=== PATIENT | female | born 1955 | race Caucasian/White ===

== ENCOUNTER 2017-04-12 15:22 | Observation (INO) | payer OTHER ==
[2017-04-12 16:35] LABS: Basophils # (A) 0.1 k/uL (0-0.2); Basophils % (A) 1 %; CH 29.9; Eosinophils # (A) 0.3 k/uL (0-0.7); Eosinophils % (A) 2 %; HCT 28.7 % (34.0-46.0); HDW 2.55; HGB 9.7 gm/dL (11.4-16.0); Luc # (Auto) 0.24; Luc % (Auto) 2; Lymphocytes # (A) 3.3 k/uL (1.0-4.8); Lymphocytes % (A) 27 %; MCH 29.8 pg (25.0-35.0); MCHC 33.6 g/dL (31.0-37.0); MCV 88.5 fL (80.0-100.0); Mean Platelet Volume 8.3; Monocytes # (A) 0.7 k/uL (0-1.0); Monocytes % (A) 6 %; Neutrophils # (A) 7.5 k/uL (1.3-7.7); Neutrophils % (A) 62 %; RBC 3.25 m/uL (3.80-5.40); RDW 13.6 % (11.5-15.5); WBC 12.2 k/uL (3.8-10.6); WBC (Perox) 12.18
[2017-04-12 16:44] LABS: ALT 45 U/L (9-52); AST 45 U/L (14-36); Alkaline Phosphatase 101 U/L (38-126); Anion Gap 8 mmol/L; Blood Urea Nitrogen 18 mg/dL (7-17); Calcium 8.6 mg/dL (8.4-10.2); Carbon Dioxide 25 mmol/L (22-30); Chloride 106 mmol/L (98-107); Glucose 74 mg/dL (74-99); Magnesium 2.1 mg/dL (1.6-2.3); Non-African American GFR(MDRD) >60 (>60 ml/min/1.73 sqM); Sodium 139 mmol/L (137-145); Total Bilirubin 0.2 mg/dL (0.2-1.3); Total Protein 6.3 g/dL (6.3-8.2)
[2017-04-12 16:47] LABS: Partial Thromboplastin Time 22.8 sec (22.0-30.0); Prothrombin Time 10.1 sec (9.0-12.0)
[2017-04-12 16:53] LABS: Creatine Kinase 102 U/L (30-135)
[2017-04-12 17:05] LABS: Creatine Kinase MB 1.7 ng/mL (0.0-2.4); Troponin I <0.012 ng/mL (0.000-0.034)
[2017-04-12] MEDS ORDERED: FAMOTIDINE 20 MG/2 ML VIAL IV STA (17:18)
[2017-04-12] MEDS ORDERED: ONDANSETRON 4 MG/2 ML VIAL IVP PRN (17:18)
--- NOTE | 2017-04-12 17:18 | ED ---
General Adult HPI - General Chief complaint: GI Bleed Stated complaint: GI Bleed Time Seen by Provider: 04/12/17 15:46 Source: patient, RN notes reviewed, old records reviewed Mode of arrival: ambulatory Limitations: no limitations - History of Present Illness Initial comments: This is a 61-year-old female ER for dark tarry stools. Patient has no prior history of bloody stool. No vomiting of blood. Not denies being an alcoholic her history of drinking. Not on blood thinners. Patient does not feel weak or lightheaded lightheaded or dizzy. Denies abdominal pain. No history of colonoscopy - Related Data Home Medications Medication Instructions Recorded Confirmed Naproxen Sodium [Aleve] 220 mg PO DAILY PRN 04/12/17 04/12/17 Allergies Allergy/AdvReac Type Severity Reaction Status Date / Time No Known Allergies Allergy Verified 04/12/17 15:58 Review of Systems ROS Statement: Those systems with pertinent positive or pertinent negative responses have been documented in the HPI. ROS Other: All systems not noted in ROS Statement are negative. Past Medical History Past Medical History: No Reported History History of Any Multi-Drug Resistant Organisms: None Reported Past Surgical History: No Surgical Hx Reported Past Psychological History: No Psychological Hx Reported Smoking Status: Current every day smoker Past Alcohol Use History: None Reported Past Drug Use History: None Reported General Exam Limitations: no limitations General appearance: alert, in no apparent distress Head exam: Present: atraumatic, normocephalic, normal inspection Eye exam: Present: normal appearance, PERRL, EOMI. Absent: scleral icterus, conjunctival injection, periorbital swelling ENT exam: Present: normal exam, mucous membranes moist Neck exam: Present: normal inspection. Absent: tenderness, meningismus, lymphadenopathy Respiratory exam: Present: normal lung sounds bilaterally. Absent: respiratory distress, wheezes, rales, rhonchi, stridor Cardiovascular Exam: Present: regular rate, normal rhythm, normal heart sounds. Absent: systolic murmur, diastolic murmur, rubs, gallop, clicks GI/Abdominal exam: Present: soft, normal bowel sounds. Absent: distended, tenderness, guarding, rebound, rigid Rectal exam: Present: heme (+) stool, black stool Extremities exam: Present: normal inspection, full ROM, normal capillary refill. Absent: tenderness, pedal edema, joint swelling, calf tenderness Back exam: Present: normal inspection Neurological exam: Present: alert, oriented X3, CN II-XII intact Psychiatric exam: Present: normal affect, normal mood Skin exam: Present: warm, dry, intact, normal color. Absent: rash Course Vital Signs 04/12/17 04/12/17 15:30 16:55 Temperature 97.7 F Pulse Rate 79 75 Respiratory 17 18 Rate Blood Pressure 117/70 132/68 O2 Sat by Pulse 99 98 Oximetry - Reevaluation(s) Reevaluation #1: 04/12/17 17:17 Patient informed regarding process, prognosis. Questions answered Medical Decision Making - Medical Decision Making 61 female with likely upper GI bleed, presumably also, melanotic stool, will admit for GI evaluation - Lab Data Result diagrams: 04/12/17 16:10 04/12/17 16:10 Lab Results 04/12/17 04/12/17 04/12/17 Range/Units 16:10 16:10 16:10 WBC 12.2 H (3.8-10.6) k/uL RBC 3.25 L (3.80-5.40) m/uL Hgb 9.7 L (11.4-16.0) gm/dL Hct 28.7 L (34.0-46.0) % MCV 88.5 (80.0-100.0) fL MCH 29.8 (25.0-35.0) pg MCHC 33.6 (31.0-37.0) g/dL RDW 13.6 (11.5-15.5) % Plt Count 253 (150-450) k/uL Neutrophils % 62 % Lymphocytes % 27 % Monocytes % 6 % Eosinophils % 2 % Basophils % 1 % Neutrophils # 7.5 (1.3-7.7) k/uL Lymphocytes # 3.3 (1.0-4.8) k/uL Monocytes # 0.7 (0-1.0) k/uL Eosinophils # 0.3 (0-0.7) k/uL Basophils # 0.1 (0-0.2) k/uL PT (9.0-12.0) sec INR (<1.2) APTT (22.0-30.0) sec Sodium 139 (137-145) mmol/L Potassium 4.0 (3.5-5.1) mmol/L Chloride 106 (98-107) mmol/L Carbon Dioxide 25 (22-30) mmol/L Anion Gap 8 mmol/L BUN 18 H (7-17) mg/dL Creatinine 0.66 (0.52-1.04) mg/dL Est GFR (MDRD) Af Amer >60 (>60 ml/min/1.73 sqM) Est GFR (MDRD) Non-Af >60 (>60 ml/min/1.73 sqM) Glucose 74 (74-99) mg/dL Calcium 8.6 (8.4-10.2) mg/dL Magnesium 2.1 (1.6-2.3) mg/dL Total Bilirubin 0.2 (0.2-1.3) mg/dL AST 45 H (14-36) U/L ALT 45 (9-52) U/L Alkaline Phosphatase 101 (38-126) U/L Total Creatine Kinase 102 (30-135) U/L CK-MB (CK-2) 1.7 (0.0-2.4) ng/mL CK-MB (CK-2) Rel Index 1.7 Troponin I <0.012 (0.000-0.034) ng/mL Total Protein 6.3 (6.3-8.2) g/dL Albumin 4.2 (3.5-5.0) g/dL Lipase 80 (23-300) U/L Stool Occult Blood (Negative) 04/12/17 04/12/17 Range/Units 16:10 16:50 WBC (3.8-10.6) k/uL RBC (3.80-5.40) m/uL Hgb (11.4-16.0) gm/dL Hct (34.0-46.0) % MCV (80.0-100.0) fL MCH (25.0-35.0) pg MCHC (31.0-37.0) g/dL RDW (11.5-15.5) % Plt Count (150-450) k/uL Neutrophils % % Lymphocytes % % Monocytes % % Eosinophils % % Basophils % % Neutrophils # (1.3-7.7) k/uL Lymphocytes # (1.0-4.8) k/uL Monocytes # (0-1.0) k/uL Eosinophils # (0-0.7) k/uL Basophils # (0-0.2) k/uL PT 10.1 (9.0-12.0) sec INR 1.0 (<1.2) APTT 22.8 (22.0-30.0) sec Sodium (137-145) mmol/L Potassium (3.5-5.1) mmol/L Chloride (98-107) mmol/L Carbon Dioxide (22-30) mmol/L Anion Gap mmol/L BUN (7-17) mg/dL Creatinine (0.52-1.04) mg/dL Est GFR (MDRD) Af Amer (>60 ml/min/1.73 sqM) Est GFR (MDRD) Non-Af (>60 ml/min/1.73 sqM) Glucose (74-99) mg/dL Calcium (8.4-10.2) mg/dL Magnesium (1.6-2.3) mg/dL Total Bilirubin (0.2-1.3) mg/dL AST (14-36) U/L ALT (9-52) U/L Alkaline Phosphatase (38-126) U/L Total Creatine Kinase (30-135) U/L CK-MB (CK-2) (0.0-2.4) ng/mL CK-MB (CK-2) Rel Index Troponin I (0.000-0.034) ng/mL Total Protein (6.3-8.2) g/dL Albumin (3.5-5.0) g/dL Lipase (23-300) U/L Stool Occult Blood Negative (Negative) Disposition Clinical Impression: Gastrointestinal hemorrhage, Upper gastrointestinal hemorrhage Disposition: ADMITTED IP TO THIS [facility] Condition: Fair Referrals: None,Stated [Primary Care Provider] - 1-2 days
[2017-04-12] MEDS ORDERED: SODIUM CHLORIDE 0.9% 1,000 ML IV ONE (17:26)
[2017-04-12 18:35] VITALS: RESP 16
[2017-04-12 19:37] VITALS: BMI 28.3
[2017-04-12] MEDS: FAMOTIDINE 20 MG/2 ML VIAL IV SCH (20:31)
[2017-04-13] MEDS: FAMOTIDINE 20 MG/2 ML VIAL IV SCH (07:39)
--- NOTE | 2017-04-13 10:28 | P.CONS ---
History of Present Illness - Reason for Consult Consult date: 04/13/17 anemia GI bleed Requesting physician: Jorgito Schmidt - History of Present Illness 61-year-old female presents with reported black colored bowel movement 2 on Wednesday. Patient was not feeling well on Wednesday with flulike symptoms weakness chills sweats dizziness. She had 2 small black colored bowel movements on Wednesday without recurrence. Epes better on Wednesday but told her symptoms to family members and the advised her to present to the hospital for further evaluation. She takes Aleve as needed for arthritic pain but denies excessive usage of Aleve prior to admission. No history of GI bleeding. No history of anemia. No history of EGD colonoscopy. Admission hemoglobin 9.7. MCV 88. Platelet 253. INR 1.0. BUN 18. Creatinine 0.6. No previous CBC available for comparison. Occult stool negative. No history of alcohol abuse or recent consumption. Denies gross hematochezia or hematemesis. No weight loss or changes in appetite. Review of Systems Constitutional: Denies fever, chills, sweats, weight gain, or loss. HEENT: Negative for migraines, blurred vision or loss, earaches, drainage, tinnitus, oral mucosal lesions, dysphagia, or odynophagia. CARDIAC: Negative for chest pain, arrhythmias, or palpitation. RESPIRATORY: Nicotine dependency. Negative for shortness of breath, hemoptysis , cough, or sputum production. GI: See HPI for pertinent findings. : Negative for hematuria, urgency, frequency, polyuria, or dysuria. GYNc: Denies possibility of . Negative vaginal discharge. MUSCULOSKELETAL: Negative for muscle aches, swelling, arthritis, and arthralgias. NEUROLOGIC: Negative for stroke or TIA. ENDOCRINE: Negative for thyroid problems. SKIN: Negative for rash or itching. PSYCHIATRIC: Negative history for depression and anxiety All systems: negative (See HPI) Past Medical History Past Medical History: No Reported History History of Any Multi-Drug Resistant Organisms: None Reported Past Surgical History: No Surgical Hx Reported Past Anesthesia/Blood Transfusion Reactions: No Reported Reaction Past Psychological History: No Psychological Hx Reported Smoking Status: Current every day smoker Past Alcohol Use History: Occasional Past Drug Use History: None Reported - Past Family History Mother Family Medical History: Cancer Additional Family Medical History / Comment(s): pancreatic Father Family Medical History: Cancer Additional Family Medical History / Comment(s): bladder and lung cancer, at 86 years old Medications and Allergies Home Medications Medication Instructions Recorded Confirmed Type Naproxen Sodium [Aleve] 220 mg PO DAILY PRN 04/12/17 04/12/17 History Allergies Allergy/AdvReac Type Severity Reaction Status Date / Time No Known Allergies Allergy Verified 04/12/17 15:58 Physical Exam Vitals: Vital Signs Temp Pulse Pulse Resp BP BP Pulse Ox 04/13/17 08:00 75 16 04/13/17 07:00 97.4 F L 75 16 101/56 97 04/12/17 21:45 97.4 F L 73 16 110/52 98 04/12/17 18:34 97.9 F 75 16 112/62 100 04/12/17 17:44 97.4 F L 74 20 124/72 99 04/12/17 16:55 75 18 132/68 98 04/12/17 15:30 97.7 F 79 17 117/70 99 Intake and Output 04/12/17 04/13/17 04/13/17 22:59 06:59 14:59 Intake Total 800 Balance 800 Intake: IV 800 Sodium Chloride 0.9% 1, 800 000 ml @ 100 mls/hr IV . Q10H ONE Rx#:[id number] Other: Voiding Method Toilet Toilet # Voids 1 1 Weight 74.843 kg General appearance: The patient is alert, oriented, in no acute distress. HET: Head is normocephalic and atraumatic. Pupils are equal and reactive. Oropharynx is clear without lesions. Neck: Supple without lymphadenopathy. Trachea midline. Heart: S1 S2. Regular rate and rhythm. Lungs: No crackles or wheezes are heard. Abdomen: Soft, nontender, nondistended with bowel sounds. No peritoneal signs. No palpable organomegaly or masses. Extremities: Normal skin color and turgor. No cyanosis, rash, ulceration, clubbing, or edema. Radial and pedal pulses are 2/4 bilaterally. Neurological: No focal deficits. Strength and sensation are grossly intact. Results CBC & Chem 7: 04/12/17 16:10 04/12/17 16:10 Labs: Abnormal Lab Results - Last 24 Hours (Table) 04/12/17 04/12/17 Range/Units 16:10 16:10 WBC 12.2 H (3.8-10.6) k/uL RBC 3.25 L (3.80-5.40) m/uL Hgb 9.7 L (11.4-16.0) gm/dL Hct 28.7 L (34.0-46.0) % BUN 18 H (7-17) mg/dL AST 45 H (14-36) U/L Assessment and Plan (1) Melena Narrative/Plan: 61-year-old female presents with painless black colored bowel movements 2 on Wednesday with anemia and occasional nonsteroidal usage. Possible peptic ulcer disease with no history of baseline colonoscopy screening. Status: Acute (2) Acute blood loss anemia Status: Acute Plan: 1. EGD colonoscopy recommended for evaluation of anemia and melena. 2. GI prophylaxis Protonix 40 mg daily. CBC monitoring. The field party manager has discussed the risks, benefits and alternative therapies for the above-mentioned procedure and for both sedation/analgesia as well as necessary blood product administration, if indicated, as they pertain to this patient. The patient has indicated understanding and acceptance of the risks and procedures discussed. Thank you for this kind referral and the opportunity to participate in the care of your patient. This consultation was discussed with Dr. Russell. The impression and plan of care have been directed as dictated.
[2017-04-13 10:32] LABS: Basophils # (A) 0.1 k/uL (0-0.2); Basophils % (A) 1 %; CH 29.8; CHCM 32.9; Eosinophils # (A) 0.3 k/uL (0-0.7); Eosinophils % (A) 3 %; HCT 26.1 % (34.0-46.0); HDW 2.56; HGB 8.6 gm/dL (11.4-16.0); Luc # (Auto) 0.19; Luc % (Auto) 2; Lymphocytes # (A) 2.4 k/uL (1.0-4.8); Lymphocytes % (A) 28 %; MCH 30.1 pg (25.0-35.0); MCV 91.1 fL (80.0-100.0); Mean Platelet Volume 8.1; Monocytes # (A) 0.6 k/uL (0-1.0); Monocytes % (A) 7 %; Neutrophils % (A) 59 %; RBC 2.86 m/uL (3.80-5.40); WBC 8.6 k/uL (3.8-10.6); WBC (Perox) 8.01
--- NOTE | 2017-04-13 10:54 | P.HPIM ---
History of Present Illness Gen. female came in with complaints of dark stools couple episodes of syncopal episodes day before. Patient does take Aleve at home never had any upper or lower GI endoscopy. Patient is admitted for monitoring patient was available gastroneurology. Patient is on Protonix. And patient is going for upper and lower GI endoscopy tomorrow. Patient is clinically stable. Patient denied any sinus of breath denied any fatigue, nausea, vomiting, denied any abdominal pain , denied any blood in the stools Review of Systems REVIEW OF SYSTEMS: CONSTITUTIONAL: No fever, no malaise, no fatigue. HEENT: No recent visual problems or hearing problems. Denied any sore throat. CARDIOVASCULAR: No chest pain, orthopnea, PND, no palpitations, no syncope. PULMONARY: No shortness of breath, no cough, no hemoptysis. GASTROINTESTINAL: No diarrhea, no nausea, no vomiting, no abdominal pain. Normoactive bowel sounds. NEUROLOGICAL: No headaches, no weakness, no numbness. HEMATOLOGICAL: Denies any bleeding or petechiae. GENITOURINARY: Denies any burning micturition, frequency, or urgency. MUSCULOSKELETAL/RHEUMATOLOGICAL: Denies any joint pain, swelling, or any muscle pain. ENDOCRINE: Denies any polyuria or polydipsia. The rest of the 14-point review of systems is negative. Past Medical History Past Medical History: No Reported History History of Any Multi-Drug Resistant Organisms: None Reported Past Surgical History: No Surgical Hx Reported Past Anesthesia/Blood Transfusion Reactions: No Reported Reaction Past Psychological History: No Psychological Hx Reported Smoking Status: Current every day smoker Past Alcohol Use History: Occasional Past Drug Use History: None Reported - Past Family History Mother Family Medical History: Cancer Additional Family Medical History / Comment(s): pancreatic Father Family Medical History: Cancer Additional Family Medical History / Comment(s): bladder and lung cancer, at 86 years old Medications and Allergies Home Medications Medication Instructions Recorded Confirmed Type Naproxen Sodium [Aleve] 220 mg PO DAILY PRN 04/12/17 04/12/17 History Allergies Allergy/AdvReac Type Severity Reaction Status Date / Time No Known Allergies Allergy Verified 04/12/17 15:58 Physical Exam Vitals: Vital Signs Temp Pulse Pulse Resp BP BP Pulse Ox 04/13/17 08:00 75 16 04/13/17 07:00 97.4 F L 75 16 101/56 97 04/12/17 21:45 97.4 F L 73 16 110/52 98 04/12/17 18:34 97.9 F 75 16 112/62 100 04/12/17 17:44 97.4 F L 74 20 124/72 99 04/12/17 16:55 75 18 132/68 98 04/12/17 15:30 97.7 F 79 17 117/70 99 Intake and Output 04/12/17 04/13/17 04/13/17 22:59 06:59 14:59 Intake Total 800 Balance 800 Intake: IV 800 Sodium Chloride 0.9% 1, 800 000 ml @ 100 mls/hr IV . Q10H ONE Rx#:[id number] Other: Voiding Method Toilet Toilet # Voids 1 1 Weight 74.843 kg PHYSICAL EXAMINATION: GENERAL: The patient is alert and oriented x3, not in any acute distress. Well developed, well nourished. HEENT: Pupils are round and equally reacting to light. EOMI. No scleral icterus. No conjunctival pallor. Normocephalic, atraumatic. No pharyngeal erythema. No thyromegaly. CARDIOVASCULAR: S1 and S2 present. No murmurs, rubs, or gallops. PULMONARY: Chest is clear to auscultation, no wheezing or crackles. ABDOMEN: Soft, nontender, nondistended, normoactive bowel sounds. No palpable organomegaly. MUSCULOSKELETAL: No joint swelling or deformity. EXTREMITIES: No cyanosis, clubbing, or pedal edema. NEUROLOGICAL: Gross neurological examination did not reveal any focal deficits. SKIN: No rashes. Results CBC & Chem 7: 04/13/17 10:00 04/12/17 16:10 Labs: Abnormal Lab Results - Last 24 Hours (Table) 04/12/17 04/12/17 04/13/17 Range/Units 16:10 16:10 10:00 WBC 12.2 H (3.8-10.6) k/uL RBC 3.25 L 2.86 L (3.80-5.40) m/uL Hgb 9.7 L 8.6 L (11.4-16.0) gm/dL Hct 28.7 L 26.1 L (34.0-46.0) % BUN 18 H (7-17) mg/dL AST 45 H (14-36) U/L Thrombosis Risk Factor Assmnt - Choose All That Apply Each Factor Represents 1 point: Obesity (BMI >25) Other Risk Factors: Yes Each Risk Factor Represents 2 Points: Age 61-74 years Thrombosis Risk Factor Assessment Total Risk Factor Score: 3 Thrombosis Risk Factor Assessment Level: Moderate Risk Assessment and Plan Plan: #1 acute blood loss anemia from upper GI bleed most probably: Patient is going for upper and lower GI endoscopy. Patient is on Protonix. #2 melena secondary to assessment #1
[2017-04-13] MEDS ORDERED: PEG 3350-NA SULF,BICARB,CL/KCL 4,000 ML BOTTLE PO ONE (16:00)
[2017-04-14] MEDS ORDERED: LACTATED RINGERS 1,000 ML IV SCH (05:36)
[2017-04-14] MEDS ORDERED: PANTOPRAZOLE 40 MG TABLET PO SCH (07:30)
[2017-04-14 07:47] LABS: CH 29.7; HCT 25.6 % (34.0-46.0); HDW 2.67; HGB 8.3 gm/dL (11.4-16.0); MCH 29.4 pg (25.0-35.0); MCHC 32.4 g/dL (31.0-37.0); MCV 90.7 fL (80.0-100.0); Mean Platelet Volume 8.1; RBC 2.83 m/uL (3.80-5.40); RDW 14.4 % (11.5-15.5); WBC 10.9 k/uL (3.8-10.6)
[2017-04-14 12:01] LABS: % Iron Saturation 9.8 % (20-50)
[2017-04-14] MEDS ORDERED: GLYCOPYRROLATE 0.2 MG/ML 2 ML VIAL ONE (13:48)
[2017-04-14] MEDS ORDERED: LIDOCAINE 1% INJ 10MG/ML (20 ML MDV) ONE (13:48)
[2017-04-14] MEDS ORDERED: PROPOFOL 10 MG/ML 20 ML VIAL IV ONE (13:48)
[2017-04-14] MEDS ORDERED: IV FLUID CONTINUATION 1,000 ML IV ONE (13:50)
--- NOTE | 2017-04-14 14:11 | P.PCN ---
Date of Procedure: 04/14/17 Preoperative Diagnosis: Postoperative Diagnosis: Procedure(s) Performed: Brief history: Patient is a pleasant 61-year-old white female, admitted hospital with acute GI bleed. She had 3 episodes of black tarry stools and dropping hemoglobin to 8.3 g/dL. She uses Aleve on and off for the last few months. Denies any prior history of peptic ulcer disease. In view of the acute GI bleed she is scheduled for an upper endoscopy as well as colonoscopy as a part of evaluation of Procedure performed: Esophagogastroduodenoscopy with biopsy Colonoscopy Preoperative diagnosis: Acute GI bleed Anesthesia: MAC Procedure: After informed consent was obtained from the patient was brought into the endoscopy unit and IV sedation was administered by anesthesia under continuous monitoring. Initially upper endoscopy was done. The Olympus GF 160 video endoscope was inserted inserted into the mouth and esophagus intubated without any difficulty and was gradually advanced into the stomach and duodenum and carefully examined. The bulb and second part of the duodenum appeared normal. The scope was then withdrawn into the stomach adequately insufflated with air and upon careful examination there was a superficial pyloric channel ulcer noted with no active bleeding. He scattered erosions in the the antrum and body and biopsies were done from this area. The, cardia and fundus appeared normal. The scope was then withdrawn into the esophagus. The GE junction was located at 40 cm to the incisors. It appeared regular with no erythema erosions or ulcerations. Rest of the esophagus appeared normal. Patient tolerated the procedure well. At this time the patient continued to remain sedation. Initial digital rectal examination was normal. Olympus CF 160 video colonoscope was then inserted into the rectum and gradually advanced to the cecum without any difficulty. Careful examination was performed as the scope was gradually being withdrawn. The prep was excellent. The cecum, ascending colon, transverse colon, descending colon, sigmoid colon and rectum appeared normal. Retroflexion was performed in the rectum and no lesions were noted. Patient tolerated the procedure well. Impression: 1. Upper endoscopy revealed superficial ulceration in the pyloric channel with no active bleeding and antral erosive gastritis 2. Colonoscopy was essentially within normal limits with no evidence of colitis or colorectal neoplasia. Recommendations: Findings of this examination were discussed with the patient as well as her family. She was advised to follow with the biopsy results. She was also advised to avoid NSAIDs and continue with Protonix 40 mg daily. Diet will be advanced as tolerated. Implants: Indications for Procedure: Operative Findings: Description of Procedure:
[2017-04-14 15:58] VITALS: BP 105/64; PULSE 78; TEMP 98.7
--- NOTE | 2017-04-14 16:12 | P.PN ---
Subjective Date of service 04/13/2017. Progress note being dictated for Dr. Schmidt. Interval history: This a 61-year-old female admitted with complaints of dark stools couple episodes of syncopal episodes day before. Patient does take Aleve at home never had any upper or lower GI endoscopy. Patient is admitted for monitoring patient was available gastroneurology. Patient is on Protonix. And patient is going for upper and lower GI endoscopy tomorrow. Patient is clinically stable. Patient denied any sinus of breath denied any fatigue, nausea, vomiting, denied any abdominal pain, denied any blood in the stools. 04/13/2017 Reports black bowel movement earlier this morning, no abdominal pain. Hemoglobin 8.6. Evaluated by GI and scheduled for both EGD and colonoscopy tomorrow. Denies chest pain, palpitations or increased shortness of breath. Denies any focal deficits, no lightheadedness or dizziness. Objective - Vital Signs Vital signs: Vital Signs Temp 97.4 F L 04/13/17 07:00 Pulse 75 04/13/17 08:00 Resp 16 04/13/17 08:00 BP 101/56 04/13/17 07:00 Pulse Ox 97 04/13/17 07:00 Intake & Output 04/12/17 04/13/17 04/13/17 18:59 06:59 18:59 Intake Total 800 Balance 800 Weight 74.843 kg Intake: IV 800 Sodium Chloride 0.9% 1, 800 000 ml @ 100 mls/hr IV . Q10H ONE Rx#:[id number] Other: Voiding Method Toilet Toilet # Voids 1 1 - Exam GENERAL: Sitting up in bed, alert and oriented x3, no acute distress. Well developed, well nourished. HEENT: Pupils are round and equally reacting to light. EOMI. No scleral icterus. No conjunctival pallor. Normocephalic, atraumatic. No pharyngeal erythema. No thyromegaly. CARDIOVASCULAR: S1 and S2 present. No murmurs, rubs, or gallops. PULMONARY: Chest is clear to auscultation, no wheezing or crackles. ABDOMEN: Soft, nontender, nondistended, normoactive bowel sounds. No palpable organomegaly. No guarding, no rigidity MUSCULOSKELETAL: No joint swelling or deformity. EXTREMITIES: No cyanosis, clubbing, or pedal edema. NEUROLOGICAL: Gross neurological examination did not reveal any focal deficits. Strength and sensation grossly intact SKIN: No rashes. - Labs CBC & Chem 7: 04/14/17 07:06 04/12/17 16:10 Labs: Abnormal Lab Results - Last 24 Hours (Table) 04/12/17 04/12/17 04/13/17 Range/Units 16:10 16:10 10:00 WBC 12.2 H (3.8-10.6) k/uL RBC 3.25 L 2.86 L (3.80-5.40) m/uL Hgb 9.7 L 8.6 L (11.4-16.0) gm/dL Hct 28.7 L 26.1 L (34.0-46.0) % BUN 18 H (7-17) mg/dL AST 45 H (14-36) U/L Assessment and Plan Plan: #1 acute blood loss anemia suspect upper GI bleed #2 melena secondary to assessment #1 Plan: Continue on current medication regime ,monitoring and symptomatic treatment. Continue on PPI. Close monitoring of CBC with repeat labs ordered for a.m. As mentioned above scheduled for EGD and colonoscopy tomorrow. Potential discharge tomorrow after endoscopy pending findings. Further recommendations to follow. The impression and plan of care has been dictated as directed. : I performed a H&P examination of this patient and discussed the same with the dictator. I agree with the dictator's note. Any additional findings/opinions/ etc. will be noted.
--- NOTE | 2017-04-14 16:24 | P.DS ---
Providers Date of admission: 04/12/17 17:27 Expected date of discharge: 04/14/17 Attending physician: Concepcion Schmidt Consults: 04/12/17 17:26 Consult Physician Routine Consulting Provider: Dennis Herrera Consult Reason/Comments: gib Do you want consulting provider notified?: Yes Primary care physician: Stated None Dr. Josephine Maxwell Hospital Course: Final Diagnoses: #1 acute blood loss anemia, S/P EGD and colonoscopy reporting superficial pyloric ulceration with no active bleeding and antral erosive gastritis, colonoscopy within normal limits without evidence of colitis or colorectal neoplasia. Biopsies obtained. #2 melena secondary to assessment #1 Hospital course :This is a pleasant 61-year-old female admitted with complaints of dark stools couple episodes of syncopal episodes day before. Patient does take Aleve at home. Has not had prior upper or lower GI endoscopy. Evaluated by GI, underwent EGD and colonoscopy revealing superficial pyloric ulceration with no active bleeding and antral erosive gastritis, colonoscopy within normal limits without evidence of colitis or colorectal neoplasia. Biopsies obtained. Tolerated procedure well. Patient has been cleared by GI for discharge. Patient is being discharged home in a stable condition with guarded prognosis. The impression and plan of care has been dictated as directed. Dr.: I performed a H&P examination of this patient and discussed the same with the dictator. I agree with the dictator's note. Any additional findings/opinions/ etc. will be noted. Patient Condition at Discharge: Stable Plan - Discharge Summary New Discharge Prescriptions: New Omeprazole [PriLOSEC] 40 mg PO DAILY #30 capsule. Discharge Medication List Omeprazole [PriLOSEC] 40 mg PO DAILY #30 capsule. 04/14/17 [Rx] Follow up Appointment(s)/Referral(s): Josephine Maxwell MD [STAFF PHYSICIAN] - 04/16/17 9:30 am (please schedule apt. prior to dc, as she will be a new patient. please call linus at [phone] to start new pt processes with dr maxwell thank you and give insurance information ) Josefina Russell MD [STAFF PHYSICIAN] - 3 Weeks Ambulatory/Diagnostic Orders: Complete Blood Count w/diff [LAB.AMB] Time Frame: 3 Days, Location: Determined By Patient Patient Instructions/Handouts: Omeprazole (By mouth) Activity/Diet/Wound Care/Special Instructions: Diet: Soft bland, no coffee Activity: Limited until follow up Avoid NSAIDs
== END 2017-04-14 16:50 | disposition home or self-care (01) ==
LOC: EC 15:22 → 5MS5E 17:27 → INTOOBSV 17:27
PROVIDERS: ADMIT Hospitalist; ATTEND Hospitalist
DX: D62 Acute posthemorrhagic anemia (principal); K92.1 Melena; K29.50 Unspecified chronic gastritis without bleeding; F17.200 Nicotine dependence, unspecified, uncomplicated; Z80.1 Family history of malignant neoplasm of trachea, bronchus and lung
CPT/HCPCS: 96376 ×2; 96361 ×2; 96374; 99285; 36415; 86900; 86901; 88305; 80053; 82728; 82550; 82553; 83540; 83550; 83690; 83735; 84484; 85025 ×2; 85027; 85610; 85730; 86850; 82272; 88342; 43239; G0378 ×3; J2001; J2704; G0121

== ENCOUNTER → 2018-11-05 | Outpatient (CLI) | payer OTHER ==
--- NOTE | 2018-11-05 14:54 | XR ---
EXAMINATION TYPE: XR Hip Complete RT DATE OF EXAM: 11/05/2018 CLINICAL HISTORY: Right hip pain for 6 to 7 months with no known injury. TECHNIQUE: AP and frogleg views of the right hip are obtained. COMPARISON: None. FINDINGS: There is no acute fracture/dislocation evident in the right hip. The joint space in the r ight hip is severely narrowed with uphj-md-fwoc articulation of the cephalad femoral head and acetabu lum. Underlying subchondral cystic change of small marginal osteophytes are seen with acetabular roof sclerosis. Femoral head maintains a normal rounded contour. No suspicious osseous lesion is seen. IMPRESSION: There is no acute fracture or dislocation in the right hip. Severe right femoral acetabu lar arthropathy with [id number]-pl-[id number] articulation of the weightbearing surface of the femoral head with the acetabular roof.
== END | disposition home or self-care (01) ==
LOC: RADXRMAIN 12:17
PROVIDERS: ATTEND Family Medicine
DX: M16.11 Unilateral primary osteoarthritis, right hip (principal)
CPT/HCPCS: 73502

== ENCOUNTER → 2018-11-25 | Outpatient (CLI) | payer OTHER ==
--- NOTE | 2018-11-28 13:18 | MM ---
Reason for exam: screening (asymptomatic). History: Patient is postmenopausal. Physical Findings: A clinical breast exam by your physician is recommended on an annual basis and results should be correlated with mammographic findings. MG Screening Mammo w CAD Bilateral CC and MLO view(s) were taken. No prior studies available for comparison. There are scattered fibroglandular densities. Finding: There is a 8 mm high density mass in the 9 o'clock position of the left breast consistent with possible mass, cyst. Asymmetric breast tissue. ASSESSMENT: Incomplete: need additional imaging evaluation, BI-RAD 0 RECOMMENDATION: Ultrasound of the left breast. [facility] will attempt to contact patient to return for ultrasound.
== END ==
LOC: RADMAMWWP 16:49
PROVIDERS: ATTEND Family Medicine
DX: Z12.31 Encounter for screening mammogram for malignant neoplasm of breast (principal)
CPT/HCPCS: 77067

== ENCOUNTER → 2018-12-14 | Outpatient (CLI) | payer OTHER ==
--- NOTE | 2018-12-14 10:58 | USB ---
Reason for exam: additional evaluation requested from abnormal screening. History: Patient is postmenopausal. Physical Findings: Nurse did not find any significant physical abnormalities on exam. US Breast Workup LT Left complete breast ultrasound includes all four quadrants, the retroareolar region and axilla. Finding demonstrates no cystic or solid lesion seen. These results were verbally communicated with the patient and result sheet given to the patient on 12/14/18. ASSESSMENT: Negative, BI-RAD 1 RECOMMENDATION: Return to routine screening mammogram schedule for both breasts.
== END | disposition home or self-care (01) ==
LOC: RADUSWWP 09:00
PROVIDERS: ATTEND Family Medicine
DX: R92.8 Other abnormal and inconclusive findings on diagnostic imaging of breast (principal)

== ENCOUNTER → 2018-12-14 | Outpatient (CLI) | payer OTHER ==
[2018-12-14 17:31] LABS: HCT 44.6 % (34.0-46.0); HGB 14.4 gm/dL (11.4-16.0); MCH 28.6 pg (25.0-35.0); MCHC 32.3 g/dL (31.0-37.0); MCV 88.7 fL (80.0-100.0); Mean Platelet Volume 7.5; Platelet Count 323 k/uL (150-450); RBC 5.04 m/uL (3.80-5.40); RDW 13.3 % (11.5-15.5); WBC 11.8 k/uL (3.8-10.6)
[2018-12-14 17:39] LABS: INR 0.9 (<1.2); Partial Thromboplastin Time 27.4 sec (22.0-30.0); Prothrombin Time 9.9 sec (9.0-12.0)
[2018-12-14 18:03] LABS: ALT 30 U/L (9-52); AST 25 U/L (14-36); Albumin 4.8 g/dL (3.5-5.0); Alkaline Phosphatase 147 U/L (38-126); Anion Gap 9 mmol/L; Blood Urea Nitrogen 19 mg/dL (7-17); Calcium 9.9 mg/dL (8.4-10.2); Carbon Dioxide 25 mmol/L (22-30); Chloride 105 mmol/L (98-107); Glucose 87 mg/dL (74-99); Potassium 4.1 mmol/L (3.5-5.1); Sodium 139 mmol/L (137-145); Total Bilirubin 0.5 mg/dL (0.2-1.3); Total Protein 7.7 g/dL (6.3-8.2)
== END | disposition home or self-care (01) ==
LOC: LABPAT 17:13
PROVIDERS: ATTEND Orthopaedic Surgery
DX: Z01.812 Encounter for preprocedural laboratory examination (principal)
CPT/HCPCS: 36415; 80053; 85027; 85610; 85730; 87070

== ENCOUNTER 2018-12-27 05:45 | Inpatient (IN) | payer OTHER ==
[~2018-12-27 05:45] MED LIST: ACETAMINOPHEN TAB 500 MG TAB PO ONE; DEXAMETHASONE SOD PHOSPHATE 10 MG/ML 1 ML VIAL IV ONE; HYDROmorphone 0.5 MG/0.5 ML SYRINGE IVP PRN; LIDOCAINE 1% 20 ML VIAL (10MG/ML) FOR IV START INTRADERMA PRN; MELOXICAM 7.5 MG TAB PO ONE; MIDAZOLAM 2 MG/2 ML VIAL IV PRN; ONDANSETRON 4 MG/2 ML VIAL IVP ONE; SCOPOLAMINE 1.5MG/72HR PATCH TRANSDERM ONE; TRANEXAMIC ACID 1,000 MG in SODIUM CHLORIDE 0.9% 100 ML IVPB ONE; ceFAZolin IN SWFI 2 GM/20 ML SYRINGE IVP ONE
[2018-12-27] MEDS: LACTATED RINGERS 1,000 ML IV SCH (06:22)
[2018-12-27] MEDS ORDERED: ROPIVACAINE 246.25 MG, EPINEPHrine 0.5 MG, KETOROLAC 30 MG, cloNIDine HCL/PF 80 MCG, WA... MISCELLANE ONE ×5 (07:00)
[2018-12-27] MEDS ORDERED: ceFAZolin 3,000 MG in SODIUM CHLORIDE 0.9% IRRIGATIO 3,000 ML IRRIGATION ONE (07:00)
[2018-12-27] MEDS ORDERED: DIAZEPAM 5 MG TAB PO PRN (07:08)
[2018-12-27] MEDS ORDERED: NALOXONE 0.4 MG/ML 1 ML VIAL IV PRN (07:08)
[2018-12-27] MEDS ORDERED: HYDROcodone/APAP 5-325MG 1 EACH TAB PO PRN (07:08)
[2018-12-27] MEDS ORDERED: HYDROmorphone 0.5 MG/0.5 ML SYRINGE IVP PRN ×2 (07:08)
[2018-12-27] MEDS ORDERED: HYDROmorphone 1 MG/ML 1 ML SYRINGE IVP PRN (07:08)
[2018-12-27] MEDS ORDERED: ONDANSETRON 4 MG/2 ML VIAL IVP PRN (07:08)
[2018-12-27] MEDS ORDERED: MAGNESIUM HYDROXIDE 2,400 MG/10 ML CUP PO PRN (07:08)
[2018-12-27] MEDS ORDERED: LACTATED RINGERS 1,000 ML IV ONE (07:51)
--- NOTE | 2018-12-27 08:42 | P.OP ---
Date of Procedure: 12/27/18 Preoperative Diagnosis: Severe osteoarthritis right hip Postoperative Diagnosis: Severe osteoarthritis right hip Procedure(s) Performed: Right total hip arthroplasty with a direct anterior approach Implants: Noyola and nephew Polarstem size 3 standard Noyola [employer] Nephew R3, 3 hole acetabular shell, 52 mm Noyola [employer] Nephew reflection 6.5 mm cancellus screw, 20 mm 2 Noyola [employer] Nephew R3, XLPE 20 acetabular liner Noyola [employer] Nephew Oxinium femoral head 36 m, +4 All components were press-fit. The articulation is Oxinium on polyethylene. Anesthesia: spinal Surgeon: Keith Pace Buildings Painter #1: Esperanza Oliver Estimated Blood Loss (ml): 110 (64 mL returned with Cell Saver) Pathology: other Condition: stable Disposition: PACU Indications for Procedure: After failure of conservative treatment we discussed the surgical and nons urgical treatment options at length. Patient wishes to proceed with a total hip arthroplasty with a direct anterior approach. Complications specific to this procedure were discussed at length, including but not limited to infection, leg length discrepancy, dislocation, and nerve injury. Patient is aware of all these complications and informed consent was obtained Operative Findings: The operative findings are consistent with severe osteoarthritis of the right hip Description of Procedure: Patient was seen and evaluated in the preoperative area, consent was reviewed, and the surgical site was marked with a skin marker. Patient was then brought to the operating room and given prophylactic antibiotics intravenously. 1 g of Tranexamic acid was also given. A spinal anesthetic was administered by the anesthesia department. The patient was then placed on the [place] table with the bony prominences well-padded. The hip area was then prepped and draped in usual sterile fashion. A universal timeout was then performed, which confirmed the patient's name, surgical site, ALLERGIES, and procedure being performed. Next the incision site was located at 1 cm distal and 1 cm lateral to the anterior superior iliac spine. The skin and subcutaneous tissues were sharply incised. Incision was carefully dissected down to the fascia overlying the tensor fascia dipak muscle. This fascia was then incised in line with the incision. Next, using blunt finger dissection, the tensor fascia dipak muscle was dissected off its investing fascia. The muscle was then carefully retracted laterally with a cobra retractor over the lateral neck of the femur. Next, the circumflex vessels were identified and cauterized using the AquaMantis device. The anterior hip capsule was then exposed. The capsule was then opened and an inverted T fashion. Cobra retractors were then placed intracapsularly. The proximal femur was then visualized. The femoral neck was then osteotomized appropriate level above the lesser trochanter. Small amount of traction was placed with the [place] table. A small wedge of bone was then removed from the remaining femoral head. Next, using a corkscrew femoral head was easily removed from the acetabulum. On gross visual inspection, the femoral head had complete loss of articular cartilage in multiple periarticular osteophytes. Attention was then turned to the acetabulum. the acetabulum was exposed and any remaining labrum was excised. Sequential reaming of the acetabulum was performed using fluoroscopic guidance. When the appropriate size was reached, a trial was then placed. The position and fit of the trial was checked with fluoroscopy. The trial was then removed. Then, using fluoroscopic guidance, the final implant was impacted at 20 of anteversion and 40 of abduction, and fully seated in the acetabulum. 2 screws were then placed in the acetabulum. Again fluoroscopy was used to check position of the screws. Next, the liner was then impacted, with a 20 elevated liner located in the anterior superior quadrant. Component locking was confirmed. Attention was then directed to the femur. With the aid of the [place] table, the femur was externally rotated to approximately 130, extended, and abducted under the opposite leg. A side hook was then placed under the proximal femur, and the side hook elevator was used to elevate the proximal femur. Retractors were then placed. A capsular release was performed, as well as a release of the conjoined tendon, which afforded excellent visualization of the proximal femur. Next, a box osteotome was used to lateralize the proximal femur. A counter hand was then used to locate the femoral canal. Sequential broaching was then performed with appropriate size which afforded excellent fixation in the proximal femur. A trial was then placed with appropriate head and neck, and the hip was gently reduced with the aid of the [place] table. Fluoroscopy was then used to check position of the components, as well as to ensure equal leg lengths. The hip was then gently dislocated and the trials were then removed. Final implants were then impacted and the hip was again reduced. Final fluoroscopic x-rays confirmed that the components were in anatomic position, as well as equal leg lengths. The hip was also taken through range of motion, and found to be stable. The hip was then copiously irrigated with antibiotic solution with pulsatile lavage. The hip was then irrigated with Irrisept solution. The soft tissues were then injected with a ropivacaine solution, which consisted of 246.25 mg of ropivacaine, 0.5 mg of epinephrine, 30 mg of Toradol, 80 g of clonidine, and 48.45 mL of sterile water, for a total of 100 mL of fluid injected. A second dose of 1 g of Tranexamic acid was also given. the fascia was then closed with 2-0 strata fix suture. The subcutaneous tissue was closed with 3-0 Vicryl. The subcuticular tissue was closed with 3-0 strata fix suture. The skin was then closed with Dermabond glue and a sterile silver dressing. The patient was then transferred to the recovery room in stable condition. The assistant professor of life sciences ADELINE Barroso was required due to the complexity of surgery, and the need for skilled surgical technologist for positioning, draping, exposure, retraction, and closure of the wound.
--- NOTE | 2018-12-27 08:52 | XR ---
EXAMINATION TYPE: XR Hip Limited RT DATE OF EXAM: 12/27/2018 COMPARISON: NONE HISTORY: Post surgical TECHNIQUE: One view submitted. FINDINGS: There is postsurgical change in near anatomic alignment. There is soft tissue edema and emphysema. IMPRESSION: 1. Postoperative change. Appears in near-anatomic alignment.
--- NOTE | 2018-12-27 08:52 | FL ---
EXAMINATION TYPE: FL guidance operating room DATE OF EXAM: 12/27/2018 HISTORY: Flouroscopy time 61 seconds of fluoroscopy provided. IMPRESSION: 1. Fluoroscopy time.
--- NOTE | 2018-12-27 09:12 | XR ---
EXAMINATION TYPE: XR Hip Limited RT DATE OF EXAM: 12/27/2018 COMPARISON: NONE HISTORY: Postop TECHNIQUE: One view submitted. FINDINGS: There is postsurgical change in near anatomic alignment. There is soft tissue edema and emphysema. IMPRESSION: 1. Postoperative change. Appears in near-anatomic alignment.
[2018-12-27] MEDS: SODIUM CHLORIDE 0.9% 1,000 ML IV SCH ×3 (09:58→22:16)
[2018-12-27] MEDS: ASPIRIN 325 MG TAB PO SCH ×2 (11:59→22:16)
[2018-12-27 12:29] VITALS: BMI 28.0
[2018-12-27] MEDS: HYDROcodone/APAP 5-325MG 1 EACH TAB PO PRN ×2 (12:53→20:29)
[2018-12-27] MEDS: hydrOXYzine PAMOATE 25 MG CAP PO PRN (14:20)
[2018-12-27] MEDS ORDERED: SODIUM CHLORIDE 0.9% 500 ML 500 ML IV ONE (15:25)
[2018-12-27 15:42] LABS: Basophils % (A) 0 %; Eosinophils # (A) 0.1 k/uL (0-0.7); Eosinophils % (A) 0 %; HCT 37.1 % (34.0-46.0); Lymphocytes # (A) 0.9 k/uL (1.0-4.8); Lymphocytes % (A) 4 %; MCH 28.8 pg (25.0-35.0); MCHC 32.3 g/dL (31.0-37.0); MCV 89.3 fL (80.0-100.0); Mean Platelet Volume 7.6; Monocytes # (A) 1.3 k/uL (0-1.0); Monocytes % (A) 5 %; Neutrophils # (A) 21.6 k/uL (1.3-7.7); Neutrophils % (A) 90 %; Platelet Count 244 k/uL (150-450); RBC 4.15 m/uL (3.80-5.40); RDW 13.5 % (11.5-15.5); WBC 23.9 k/uL (3.8-10.6)
[2018-12-27 15:49] LABS: ALT 33 U/L (9-52); AST 49 U/L (14-36); Albumin 3.7 g/dL (3.5-5.0); Alkaline Phosphatase 108 U/L (38-126); Anion Gap 6 mmol/L; Blood Urea Nitrogen 21 mg/dL (7-17); Calcium 8.9 mg/dL (8.4-10.2); Carbon Dioxide 27 mmol/L (22-30); Chloride 106 mmol/L (98-107); Glucose 113 mg/dL (74-99); Potassium 4.4 mmol/L (3.5-5.1); Sodium 139 mmol/L (137-145); Total Bilirubin 0.5 mg/dL (0.2-1.3); Total Protein 5.9 g/dL (6.3-8.2)
[2018-12-27] MEDS: KETOROLAC 30 MG/ML 1 ML VIAL IVP SCH (17:11)
[2018-12-27] MEDS: ceFAZolin IN SWFI 2 GM/20 ML SYRINGE IVP SCH (17:12)
--- NOTE | 2018-12-27 18:25 | CONS ---
CONSULTATION DATE OF SERVICE: 12/27/2018 REASON FOR CONSULTATION: Advice regarding DJD and other multiple medical issues requested by Dr. Pace. HISTORY OF PRESENT ILLNESS: This 63-year-old woman who was previously healthy, being followed by Dr. Maxwell in the outpatient setting had history of occasional smoking. Patient had history of bone spurs. The patient underwent right total hip joint arthroplasty. Patient complains of some severe pain. Otherwise there is no history of fever, rigors or chills. No history of headache, loss of consciousness or seizures. Preop CBC showed elevated white count. PAST MEDICAL HISTORY: History of bone spurs, history of colonoscopy, history of occasional smoking. MEDICATIONS: Tylenol p.r.n. ALLERGIES: None. FAMILY HISTORY: History of pancreatic cancer in the family. SOCIAL HISTORY: History of smoking. Occasional alcohol intake. REVIEW OF SYSTEMS: ENT: No diminished vision. No diminished hearing. CARDIOVASCULAR: No angina. No palpitations. RESPIRATORY: As suspicion mentioned earlier. GI no nausea or vomiting. : No dysuria. CENTRAL NERVOUS SYSTEM: No numbness, weakness. ALLERGY/IMMUNOLOGY: No asthma or hayfever. MUSCULOSKELETAL: As mentioned earlier. HEMATOLOGY/ONCOLOGY: No history of anemia. ENDOCRINE: No history of diabetes or hypothyroidism. CONSTITUTIONAL: As mentioned earlier. Dermatology: Negative. Rheumatology: Negative. Psychiatry: As mentioned earlier. PHYSICAL EXAMINATION: The patient is alert and oriented times three. Pulse 58, blood pressure 86/50, respiration 16, temp is normal. Pulse ox 98% on room air. HEENT: Conjunctivae normal. Neck: No jugular venous distention. No carotid bruit. No lymph node enlargement. CARDIOVASCULAR SYSTEM: S1, S2 muffled. RESPIRATORY SYSTEM: Breath sounds diminished at the bases. No rhonchi. No crackles. ABDOMEN: Soft, nontender. No mass palpable. Legs: No edema. No swelling. Nervous system: Higher functions as mentioned earlier. Legs: Status post right hip arthroplasty. Nervous system: Higher functions as mentioned earlier. Moves all four limbs. No focal deficits. Lymphatics: No lymph nodes palpable in the neck, axillae or groin. Skin: No ulcer, no rash. No bleeding. JOINTS: No active deforming arthropathy. LABS: At this time shows the preop lab studies WBC 12.2, hemoglobin 15.3. ASSESSMENT: 1. Status post right total hip joint arthroplasty. 2. History of degenerative joint disease. 3. Mild postoperative hypotension. 4. History of nicotine dependence. RECOMMENDATIONS AND DISCUSSION: In this 63-year-old woman who presented with multiple medical issues, at this time, I recommend continue the current medications. I will continue with IV fluids with the bolus of 500 mL followed by 125 mL/hour. Monitor blood pressure closely. Baseline labs and workup. Otherwise DVT prophylaxis. Incentive spirometry. We will follow the patient closely. The patient may be asked to follow up with Dr. Maxwell closely in the outpatient setting. Thank you, Dr. Pace, for letting us participate in the care of this patient. MMODL / IJN: [id number] /
[2018-12-27 19:25] VITALS: RESP 16
[2018-12-27] MEDS ORDERED: SENNOSIDES-DOCUSATE SODIUM 1 EACH TAB PO SCH (21:00)
[2018-12-28] MEDS: ceFAZolin IN SWFI 2 GM/20 ML SYRINGE IVP SCH (00:23)
[2018-12-28] MEDS: KETOROLAC 30 MG/ML 1 ML VIAL IVP SCH ×2 (00:23→05:57)
[2018-12-28] MEDS: HYDROcodone/APAP 5-325MG 1 EACH TAB PO PRN ×2 (03:47→10:39)
[2018-12-28] MEDS: LACTATED RINGERS 1,000 ML IV SCH (05:15)
[2018-12-28] MEDS: SODIUM CHLORIDE 0.9% 1,000 ML IV SCH (05:56)
[2018-12-28] MEDS ORDERED: fentaNYL (PF) 50 MCG/ML 2 ML AMP ONE (06:56)
[2018-12-28] MEDS ORDERED: TRANEXAMIC ACID 1,000 MG/10 ML VIAL ONE (06:56)
[2018-12-28] MEDS ORDERED: LACTATED RINGERS 1,000 ML BAG IV ONE (06:56)
[2018-12-28] MEDS ORDERED: PHENYLEPHRINE-0.9% NACL SYG 1 MG/10 ML SYRINGE ONE (06:56)
[2018-12-28] MEDS ORDERED: HEPARIN SODIUM,PORCINE 5,000 UNIT/ML 1 ML VIAL ONE (06:56)
[2018-12-28] MEDS ORDERED: LIDOCAINE 1% INJ 10MG/ML (20 ML MDV) ONE (06:56)
[2018-12-28] MEDS ORDERED: SODIUM CHLORIDE 0.9% 100 ML BAG ONE (06:56)
[2018-12-28] MEDS ORDERED: PROPOFOL 10 MG/ML 20 ML VIAL IV ONE (06:56)
[2018-12-28] MEDS ORDERED: ePHEDrine SULFATE/0.9% NACL/PF 50 MG/5 ML SYRINGE IV ONE (06:56)
[2018-12-28] MEDS ORDERED: MIDAZOLAM 2 MG/2 ML VIAL ONE (06:56)
[2018-12-28 07:58] VITALS: BP 105/68; PULSE 81; TEMP 99.1
[2018-12-28] MEDS: ASPIRIN 325 MG TAB PO SCH (08:19)
[2018-12-28 08:39] LABS: Basophils # (A) 0.1 k/uL (0-0.2); Basophils % (A) 0 %; Eosinophils # (A) 0.1 k/uL (0-0.7); Eosinophils % (A) 1 %; HCT 33.2 % (34.0-46.0); HGB 10.7 gm/dL (11.4-16.0); Lymphocytes # (A) 2.7 k/uL (1.0-4.8); Lymphocytes % (A) 22 %; MCH 28.7 pg (25.0-35.0); MCHC 32.3 g/dL (31.0-37.0); MCV 88.8 fL (80.0-100.0); Mean Platelet Volume 7.9; Monocytes # (A) 1.1 k/uL (0-1.0); Monocytes % (A) 9 %; Neutrophils # (A) 8.3 k/uL (1.3-7.7); Neutrophils % (A) 68 %; Platelet Count 228 k/uL (150-450); RBC 3.74 m/uL (3.80-5.40); RDW 13.6 % (11.5-15.5); WBC 12.3 k/uL (3.8-10.6)
--- NOTE | 2018-12-28 08:52 | P.DS ---
Providers Date of admission: 12/27/18 05:45 Expected date of discharge: 12/28/18 Attending physician: Keith Pace Consults: 12/27/18 07:08 Consult Physician Routine Consulting Provider: Concepcion Maldonado Consult Reason/Comments: medical management Do you want consulting provider notified?: Yes Primary care physician: Josephine Maxwell - Discharge Diagnosis(es) (1) Osteoarthritis of right hip Current Visit: Yes Status: Acute (2) Status post total hip replacement, right Current Visit: Yes Status: Acute Hospital Course: This is a 63-year-old female with known history of degenerative arthritis of the right hip. The patient presents for evaluation. After discussion and consideration patient elects to proceed with total hip arthroplasty. The patient is seen preoperatively by Dr. Pace and medically cleared for surgery by their primary care physician. Patient is admitted to [facility] on 12/27/2018 for total hip arthroplasty. The procedures performed without complication or sequelae. The patient is doing well postoperatively. Labs and vital signs are stable on day of discharge. On day of discharge patient's hip incision is healing well. There is minimal erythema. There is no drainage noted at this time. There is minimal soft tissue swelling to the hip and thigh. Patient has full foot and ankle motion without difficulty or pain. Calf is soft and nontender to palpation. Neurovascular status to the right lower extremity is intact. Patient is discharged home in good condition. Opioid start talking form is reviewed and signed at patient bedside. Please see med rec for accurate list of home medications. Plan - Discharge Summary Discharge Rx Participant: Yes New Discharge Prescriptions: New Aspirin 325 mg PO BID #60 tab HYDROcodone/APAP 5-325MG [[place] 5-325] 1 - 2 tab PO Q6HR PRN #56 tab PRN Reason: Pain Sennosides [Senokot] 1 tab PO BID #60 tablet Ketorolac [Toradol] 10 mg PO Q6HR #8 tab No Action Acetaminophen [Tylenol] 1,000 mg PO Q4-6H PRN PRN Reason: Pain Discharge Medication List Acetaminophen [Tylenol] 1,000 mg PO Q4-6H PRN 12/16/18 [History] Aspirin 325 mg PO BID #60 tab 12/28/18 [Rx] HYDROcodone/APAP 5-325MG [[place] 5-325] 1 - 2 tab PO Q6HR PRN #56 tab 12/28/18 [Rx] Ketorolac [Toradol] 10 mg PO Q6HR #8 tab 12/28/18 [Rx] Sennosides [Senokot] 1 tab PO BID #60 tablet 12/28/18 [Rx] Follow up Appointment(s)/Referral(s): Keith Pace DO [Doctor of Osteopathic Medicine] - 2 Weeks Activity/Diet/Wound Care/Special Instructions: Weightbearing as tolerated with walker. Leave dressing intact. Dressing may be removed by home care nurse or by patient in 10 days. May shower with dressing on. Please follow-up with [facility] in 2 weeks and call with any questions or concerns, . Discharge Disposition: HOME WITH HOME HEALTH SERVICES
[2018-12-28] MEDS ORDERED: MELOXICAM 7.5 MG TAB PO SCH (09:00)
[2018-12-28] MEDS: hydrOXYzine PAMOATE 25 MG CAP PO PRN (10:39)
--- NOTE | 2018-12-28 19:11 | PN ---
PROGRESS NOTE DATE OF SERVICE: 12/28/2018 This 63-year-old woman who was admitted after right total hip joint arthroplasty, is improving significantly. No chest pain. No palpitations. No fever. EXAM: Alert and oriented times three. Pulse 81, blood pressure 108/60. Respirations 16. Temp 99.1, pulse ox 94% on room air. HEENT: Conjunctivae normal. NECK: No jugular venous distention. CARDIOVASCULAR: S1, S2 muffled. RESPIRATORY: Breath sounds diminished in the bases. No rhonchi. No crackles. Abdomen is soft, nontender. Legs are no edema. No swelling. CENTRAL NERVOUS SYSTEM: No focal deficits. LAB STUDIES: WBC ntd, hemoglobin 10.7. ASSESSMENT: 1. Status post right total hip joint arthroplasty. 2. History of degenerative joint disease. 3. Increased WBC, improved. 4. Mild postoperative hypotension. 5. History of nicotine dependence. RECOMMENDATIONS AND DISCUSSION: Recommend to continue current medications, management and symptomatic treatment. Otherwise, I recommend close follow up with primary care physician in the outpatient setting. Further recommendations to follow. MMODL / IJN: [id number] / MTDD
--- NOTE | 2018-12-29 12:13 | CDI ---
Documentation Clarification Form Date: 12/29/2018 11:07:00 AM From: Lisbeth Alberto Karli Abraham, Key Worker Hours-8:30 am & 5 pm MArsenio Admit Date: 12/27/2018 5:45:00 AM Patient Name: Shiloh Hemphill Visit Number: [id number] Discharge Date: 12/28/2018 2:01:00 PM ATTENTION: The Clinical Documentation Specialists (CDI) and [facility] Coding Staff appreciate your assistance in clarifying documentation. Please respond to the clarification below the line at the bottom and electronically sign. The CDI & [facility] Coding staff will review the response and follow-up if needed. Please note: Queries are made part of the Legal Health Record. If you have any questions, please contact the author of this message via ITS. Dr. Keith Pace Postoperative hypotension is documented in the PN, Consult Patients Admitting Diagnosis: DJD Hip Post-Operative Diagnosis: Same Procedure performed: Arthroplasty R Hip In order to accurately reflect this patients severity of illness, please clarify if the post-operative diagnosis is: An expected post-procedural or post-surgical condition Integral to the procedure Inherent to the procedure An unexpected post-procedural or post-surgical condition related to surgical care Other, please specify Unable to determine MTDD
== END 2018-12-28 14:01 | disposition home health service (06) | DRG 470 ==
LOC: 2ORMAIN 05:45 → 4SSUR 10:57
PROVIDERS: ADMIT Orthopaedic Surgery; ATTEND Orthopaedic Surgery
PROC: 30233N0 Transfusion of Autologous Red Blood Cells into Peripheral Vein, Percutaneous Approach (ICD-10-PCS; 2018-12-27)
PROC: 0SR906A Replacement of Right Hip Joint with Oxidized Zirconium on Polyethylene Synthetic Substitute, Uncemented, Open Approach (ICD-10-PCS; principal; 2018-12-27 07:00)
DX: M16.11 Unilateral primary osteoarthritis, right hip (principal); I95.9 Hypotension, unspecified; M77.9 Enthesopathy, unspecified; D72.829 Elevated white blood cell count, unspecified; Z87.891 Personal history of nicotine dependence; Z80.0 Family history of malignant neoplasm of digestive organs
CPT/HCPCS: 73501; 80053; 84484; 85025; 86850; 86891; 86900; 86901; 88300; 93005; 94760

== ENCOUNTER → 2023-06-02 | Outpatient (CLI) | payer MEDICARE ==
[2023-06-02 14:08] LABS: INR 0.9 (<1.2); Partial Thromboplastin Time 28.1 sec (22.0-30.0)
[2023-06-02 20:27] LABS: HCT 47.2 % (37.2-46.3); HGB 15.1 d/dL (12.0-15.0); MCH 29.2 pg (27.0-32.0); MCV 91.1 FL (80.0-97.0); Mean Platelet Volume 11.1 FL (9.5-12.2); NRBC Per 100 WBC 0 X 10*3/uL (0.00-0.01); Platelet Count 325 X 10*3/uL (140-440); RBC 5.18 X 10*6/uL (4.10-5.20); RDW 13.5 % (11.5-14.5); WBC 13.56 X 10*3/uL (4.50-10.00)
[2023-06-02 20:51] LABS: ALT 24 U/L (8-44); AST 24 U/L (13-35); Albumin 5.1 d/dL (3.8-4.9); Albumin/Globulin Ratio 2.22 Ratio (1.60-3.17); Alkaline Phosphatase 143 U/L (41-126); BUN/Creat Ratio 22.86 Ratio (12.00-20.00); Calcium 10.3 mg/dL (8.7-10.3); Chloride 100 mmol/L (96-109); Globulin 2.3 d/dL (1.6-3.3); Glucose 89 mg/dL (70-110); Potassium 4.6 mmol/L (3.5-5.5); Sodium 140 mmol/L (135-145); Total Bilirubin 0.4 mg/dL (0.3-1.2); Total Protein 7.4 d/dL (6.2-8.2)
[2023-06-02 21:39] LABS: Appearance,Urine Clear (Clear); Bilirubin,Urine Negative (Negative); Blood,Urine Negative (Negative); Color,Urine Yellow (Yellow); Ketones,Urine Negative (Negative); Nitrite,Urine Negative (Negative); Specific Gravity,Urine 1.008 (1.001-1.030); Urobilinogen,Urine 0.2 E.U./DL
[2023-06-02 21:57] LABS: Bacteria,Urine None Seen (None Seen)
== END | disposition home or self-care (01) ==
LOC: LABPAT 12:48
PROVIDERS: ATTEND Orthopaedic Surgery
DX: Z01.812 Encounter for preprocedural laboratory examination (principal); M16.12 Unilateral primary osteoarthritis, left hip
CPT/HCPCS: 80053; 81001; 85027; 85610; 85730; 87070

== ENCOUNTER 2023-06-08 05:49 | Day surgery (SDC) | payer MEDICARE, OTHER ==
[~2023-06-08 05:49] MED LIST changes: -ACETAMINOPHEN TAB 500 MG TAB PO ONE; +ACETAMINOPHEN TAB 500 MG TAB PO PRN; -DEXAMETHASONE SOD PHOSPHATE 10 MG/ML 1 ML VIAL IV ONE; +GABAPENTIN 300 MG CAP PO PRN; -HYDROmorphone 0.5 MG/0.5 ML SYRINGE IVP PRN; -LIDOCAINE 1% 20 ML VIAL (10MG/ML) FOR IV START INTRADERMA PRN; -MELOXICAM 7.5 MG TAB PO ONE; +MELOXICAM 7.5 MG TAB PO PRN; -MIDAZOLAM 2 MG/2 ML VIAL IV PRN; -ONDANSETRON 4 MG/2 ML VIAL IVP ONE; +ONDANSETRON 4 MG/2 ML VIAL ONE; -SCOPOLAMINE 1.5MG/72HR PATCH TRANSDERM ONE; +TRANEXAMIC 1,000 MG/100ML-NACL 1,000 MG in SALINE 1 100ML.BAG IVPB PRN; -TRANEXAMIC ACID 1,000 MG in SODIUM CHLORIDE 0.9% 100 ML IVPB ONE; -ceFAZolin IN SWFI 2 GM/20 ML SYRINGE IVP ONE
[2023-06-08] MEDS ORDERED: DEXAMETHASONE SOD PHOSPHATE 4 MG/ML 1 ML VIAL IVP ONE (06:20)
[2023-06-08] MEDS ORDERED: MIDAZOLAM 2 MG/2 ML VIAL IVP ONE (06:21)
[2023-06-08] MEDS ORDERED: LACTATED RINGERS 1,000 ML IV SCH (06:37)
[2023-06-08] MEDS ORDERED: fentaNYL (PF) 50 MCG/ML 2 ML AMP IV PRN (06:37)
[2023-06-08] MEDS ORDERED: ONDANSETRON 4 MG/2 ML VIAL IVP ONE (06:37)
[2023-06-08] MEDS ORDERED: NEOSTIGMINE 1 MG/ML 10 ML VIAL ONE (06:58)
[2023-06-08] MEDS ORDERED: MIDAZOLAM 2 MG/2 ML VIAL ONE (06:58)
[2023-06-08] MEDS ORDERED: HYDROmorphone (PF) 1 MG/ML ONE (06:58)
[2023-06-08] MEDS ORDERED: DEXAMETHASONE SOD PHOSPHATE 4 MG/ML 1 ML VIAL ONE (06:58)
[2023-06-08] MEDS ORDERED: fentaNYL (PF) 50 MCG/ML 2 ML AMP ONE (06:58)
[2023-06-08] MEDS ORDERED: ROPIVACAINE 5 MG/ML 30 ML VIAL ONE (06:58)
[2023-06-08] MEDS ORDERED: ROCURONIUM 10 MG/ML (5 ML VIAL) IV ONE (06:58)
[2023-06-08] MEDS ORDERED: ceFAZolin 1,000 MG in SODIUM CHLORIDE 0.9% 1,000 ML IRRIGATION ONE (06:58)
[2023-06-08] MEDS ORDERED: GLYCOPYRROLATE 0.2 MG/ML 2 ML VIAL ONE (06:58)
[2023-06-08] MEDS ORDERED: PHENYLEPHRINE-0.9% NACL SYG 1,000 MCG/10 ML SYRINGE ONE (06:58)
[2023-06-08] MEDS ORDERED: PROPOFOL 10 MG/ML 20 ML VIAL IV ONE (06:58)
[2023-06-08] MEDS ORDERED: TRANEXAMIC 1,000 MG/100ML-NACL PREMIX BAG ONE (06:58)
[2023-06-08] MEDS ORDERED: SODIUM CHLORIDE 0.9% (PF) 10 ML VIAL ONE (06:58)
[2023-06-08] MEDS ORDERED: ROPIVACAINE 5 MG/ML 30 ML VIAL MISCELLANE ONE ×2 (07:03→07:56)
--- NOTE | 2023-06-08 07:22 | P.ANPRN ---
Procedure Note - Anesthesia - Nerve Block Performed Left [place] Single Date of Procedure: 06/08/23 Procedure Start Time: : Procedure Stop Time: : Indication: Acute Post-Operative Pain, Requested by Surgeon Sedation Type: Sedate with meaningful contact maintained Preparation: Sterile Prep Position: Supine Catheter: None Needle Types: [place]ajunk Needle Gauge: 21 Ultrasound used to visualize needle placement: Yes Ultrasound used to observe medication spread: Yes Injectate: 0.5% Ropivacaine (see comment for volume) (15 mls+10 mls NS+4 mgs Decadron) Blood Aspirated: No Pain Paresthesia on Injection Noted: No Resistance on Injection: Normal Image Stored and Saved: Yes Events: Uneventful and Well Tolerated
--- NOTE | 2023-06-08 08:04 | P.OP ---
Date of Procedure: 06/08/23 Preoperative Diagnosis: Severe Osteoarthritis left hip Postoperative Diagnosis: Severe osteoarthritis left hip Procedure(s) Performed: Left total hip arthroplasty with a direct anterior approach Implants: [employer] Polarstem standard size 3 [employer] R3, 3 hole hemispherical acetabular shell, 52 mm [employer] Reflection 6.5 mm cancellus screw, 20 mm 2 [employer] R3, XLPE 20 acetabular liner [employer] Oxinium femoral head 36 m, +0 All components were press-fit. The articulation is Oxinium on polyethylene. Anesthesia: GETA Surgeon: Keith Pace Cotton Broker #1: Esperanza Oliver Estimated Blood Loss (ml): 600 Pathology: none sent Condition: stable Disposition: PACU Indications for Procedure: After failure of conservative treatment we discussed the surgical and nonsurgical treatment options at length. Patient wishes to proceed with a total hip arthroplasty with a direct anterior approach. Complications specific to this procedure were discussed at length, including but not limited to infection, leg length discrepancy, dislocation, nerve injury, and fracture. Covid-19 was also discussed at length with the patient, and they are aware of the current policies and procedures. The patient was given the option of delaying surgery, but they elect to proceed knowing these risks. Patient is aware of all these complications and informed consent was obtained Operative Findings: The operative findings are consistent with severe osteoarthritis of the left hip Description of Procedure: The patient was seen and evaluated in the preoperative area and the consent was reviewed. The operative site was marked with a skin marker. The patient verified the procedure and operative site. A JAE block was placed by anesthesia in the preoperative area. The patient was then brought to the operating room and given preoperative antibiotics intravenously. 1 g of Tranexamic acid was also given intravenously. A general anesthetic was administered by the anesthesia department. The patient was then placed on the Hermosa table with the bony prominences well-padded. The hip area was then prepped with a ChloraPrep solution and draped in the usual sterile fashion. A universal timeout was then performed, which confirmed the patient's name, surgical site, ALLERGIES, and procedure being performed on the consent. Next the incision site was located at 1 cm distal and 4 cm lateral to the anterior superior iliac spine. The skin and subcutaneous tissues were sharply incised. Incision was carefully dissected down to the fascia overlying the tensor fascia dipak muscle. This fascia was then incised in line with the muscle fibers. Care was taken to stay laterally in order to avoid injuring the lateral femoral cutaneous nerve. Next, using blunt finger dissection, the tensor fascia dipak muscle was dissected off its investing fascia. The muscle was then carefully retracted laterally with a cobra retractor over the lateral neck of the femur. Next, the circumflex vessels were identified and cauterized using the Aquamantis device. The anterior hip capsule was then exposed. The capsule was then opened and an inverted T fashion. The retractors were then placed intracapsularly. The retractors were maintained intracapsular throughout the procedure. The proximal femur was then visualized. Fluoroscopic x-rays were then taken in order to evaluate the preoperative leg lengths. A small amount of traction was placed on the leg. The femoral neck was then osteotomized at the appropriate level above the lesser trochanter. A small wedge of bone was then removed from the remaining femoral head. Next, using a corkscrew the femoral head was removed from the acetabulum. On gross visual inspection, the femoral head had complete loss of articular cartilage and multiple periarticular osteophytes. The femoral head was then measured. Attention was then turned to the acetabulum. The acetabulum was exposed and any remaining labrum was excised. Sequential reaming of the acetabulum was performed using fluoroscopic guidance until there was a good bed of bleeding cancellus bone. When the appropriate size was reache d, a trial was then placed. The position and fit of the trial was checked with fluoroscopy. The trial was then removed. Then, using fluoroscopic guidance, the final implant was impacted at 20 of anteversion and 40 of abduction, and fully seated in the acetabulum. 2 screws were then placed in the acetabulum. Again fluoroscopy was used to check position of the screws. Next, the liner was then impacted, with a 20 elevated liner located in the anterior superior quadrant. Component locking was confirmed. Attention was then directed to the femur. With the aid of the Hermosa table, the femur was externally rotated to approximately 130, extended, and adducted under the opposite leg. A side hook was then placed under the proximal femur, and the side hook elevator was used to elevate the proximal femur while releasing the capsule. Retractors were then placed. A capsular release was performed, as well as a release of the conjoined tendon, which afforded excellent visualization of the proximal femur. Next, a box osteotome was used to lateralize the proximal femur. A cloth examiner hand was then used to locate the femoral canal. Sequential broaching was then performed with appropriate size which afforded excellent fixation in the proximal femur. A trial was then placed with appropriate head and neck, and the hip was gently reduced with the aid of the Hermosa table. Fluoroscopy was then used to check position of the components, as well as to evaluate the leg lengths and offset. The leg lengths and offset were measured as closely as possible to ensure stability of the hip. The hip was then gently dislocated and the trials were then removed. Final implants were then impacted and the hip was again reduced. Final fluoroscopic x-rays confirmed that the components were in anatomic position. The leg lengths and offset were measured and were found to coincide with the trial measurements. The hip was also taken through range of motion, and found to be stable. The hip was then copiously irrigated with antibiotic solution with pulsatile lavage. The hip was then irrigated with Irrisept solution. The soft tissues were then injected with a ropivacaine solution. A second dose of 1 g of Tranexamic acid was also given intravenously. The fascia was then closed with 2-0 strata fix suture. The subcutaneous tissue was closed with 3-0 Vicryl. The subcuticular tissue was closed with 3-0 strata fix suture. The skin was then closed with Exofin skin glue. After the glue and dried, and Optifoam silver impregnated dressing was applied. The patient was then transferred to the recovery room in stable condition. The congressional assistant ADELINE Barroso was required due to the complexity of surgery, and the need for skilled instructor adjunct surgical technician for positioning, draping, exposure, retraction, and closure of the wound.
[2023-06-08] MEDS ORDERED: NALOXONE 0.4 MG/ML 1 ML VIAL IV PRN (08:26)
[2023-06-08] MEDS ORDERED: HYDROmorphone 0.5 MG/0.5 ML SYRINGE IVP PRN ×3 (08:26)
[2023-06-08] MEDS ORDERED: ONDANSETRON 4 MG/2 ML VIAL IVP PRN (08:26)
[2023-06-08] MEDS ORDERED: HYDROcodone/APAP 7.5-325MG 1 EACH TAB PO PRN ×2 (08:28)
[2023-06-08] MEDS ORDERED: SODIUM CHLORIDE 0.9% 1,000 ML IV SCH (08:30)
[2023-06-08 08:38] VITALS: TEMP 96.9
[2023-06-08] MEDS: HYDROmorphone 0.5 MG/0.5 ML SYRINGE IVP PRN ×2 (08:58→09:06)
--- NOTE | 2023-06-08 09:37 | XR ---
EXAMINATION TYPE: XR Hip Limited LT DATE OF EXAM: 06/08/2023 Comparison: None Clinical History: 68-year-old female Status post hip surgery, assess surgical alignment Findings: Image shows placement of left total hip arthroplasty. Both acetabular cup and femoral stem components of the prosthesis are well seated without periprosthetic fracture. Alignment grossly anatomic. Scatt ered soft tissue air related to recent operation. Impression: Uncomplicated postoperative appearance left total hip arthroplasty.
--- NOTE | 2023-06-08 10:15 | FL ---
EXAMINATION TYPE: FL guidance operating room, XR Hip Limited LT DATE OF EXAM: 06/08/2023 Comparison: None Clinical History: 68-year-old female LEFT ANTERIOR HIP Findings: Intraoperative fluoroscopy during left total arthroplasty. A previous right hip arthroplasty is noted . FLUOROSCOPY Fluoroscopy time of 42 seconds was used during left hip total arthroplasty. 5 image/s document/s the procedure. 3.3635 Gycm2 Impression: Intraoperative fluoroscopy as above.
[2023-06-08 10:21] VITALS: RESP 18
[2023-06-08 10:25] VITALS: BP 110/79; PULSE 74
[2023-06-08] MEDS ORDERED: LACTATED RINGERS 1,000 ML IV ONE (10:26)
== END 2023-06-08 11:30 | disposition home health service (06) ==
LOC: OR 05:49 → EDSTATUS 07:00 → OR 11:30
PROVIDERS: ATTEND Orthopaedic Surgery
DX: M16.12 Unilateral primary osteoarthritis, left hip (principal); G89.18 Other acute postprocedural pain; Z86.59 Personal history of other mental and behavioral disorders; Z87.891 Personal history of nicotine dependence; Z79.899 Other long term (current) drug therapy
CPT/HCPCS: 97530; 97161; 64447; 86900; 86901; 86850; 73501; 27130; 64999; C1776; J2250; J1100; J2710; J0690 ×2; J2405; J3010; J1170 ×2; J2795; J2704; J2371